=== PATIENT | female | born 1950 | race Caucasian/White ===

== ENCOUNTER → 2016-11-28 | Outpatient (CLI) | payer OTHER, BC ==
[~2016-11-28] VITALS: Ht 157.5 cm; Wt 48.1 kg
[~2016-11-28] MED LIST: ASA81BEC; CITRACAL + BON1 EACH PO; DEXADRINE PO; DULCOLAX STOOL100 MG PO; EFFEXOR XR150 MG PO; FIBER500 MG PO; FISH OIL 1,001000 M2 PO; LIDOCAINE-PRILO30 GM; LINZESS145 MCG PO; LISINOPRIL5 MG PO; METHADONE HCL5 MG PO; MOVANTIK12.5 MG PO; NODOLOR CAPSUL1 EACH PO; NORCO 5-325 TA1 EACH PO; OXYCODONE-ACET1 EAC2 PO; OXYCODONE-ACET1 EACH PO; OXYCONTIN10 M1 PO; PERCOCET PO; SENOKOT-S1 TA1 PO; TEGRETOL XR100 MG PO; TEGRETOL XR200 MG PO; TRAMADOL 50 MG50 MG; VALIUM5 MG PO; VALTREX 500 MG500 M1 PO; ZOCOR20 MG PO; ZOFRAN ODT4 MG DISSOLVE
[2016-11-28 10:50] VITALS: BP 124/82
== END | disposition home or self-care (01) ==
LOC: PAIN 06:50
DX: F52.22 Female sexual arousal disorder (principal); G89.29 Other chronic pain; M53.3 Sacrococcygeal disorders, not elsewhere classified; F11.20 Opioid dependence, uncomplicated; N81.89 Other female genital prolapse; R51 Headache; Z98.890 Other specified postprocedural states; Z87.891 Personal history of nicotine dependence

== ENCOUNTER → 2017-07-10 | Outpatient (CLI) | payer OTHER, BC ==
[~2017-07-10] VITALS: Ht 157.5 cm; Wt 46.7 kg
[~2017-07-10] MED LIST changes: +COLACE100 MG PO; +FLECTOR PATCH1 EA TRANSDERM; +METAMUCIL1 EAC1 PO; +SYMPROIC0.2 MG PO
--- NOTE | ~2017-07-10 | HPC ---
[facility] [address] [place] [address] PAIN MANAGEMENT CONSULTATION Name: DEEPA GALEANO Room #: REG Eric MAnnabella.#: [id number] Admission: 07/10/17 Attend Phys: Dakota Tai MD Discharge: Date of : 48 Report #: [id number] THIS REPORT FOR: //name// CC: ELENITA KING DATE OF SERVICE: 07/10/2017 HISTORY OF PRESENT ILLNESS: The patient returns to pain clinic today in followup. She has recently seen Dr. Pelon King. He has discussed percutaneous spinal cord stimulator trial followed by implant. She has completed her psychological testing. He intends to place the leads at standard T9 through T10 area, but may pull them lower in hopes of capturing her coccygeal region. In the meantime, we have continued to provide her with medication. She is highly anxious. She uses 2.5 mg of diazepam as needed for anxiety, this very low dose is paired with opioid, oxycodone 10/325 which is taken also on an as needed basis. She is cautious about her use, oftentimes using only half a tablet. She has had no issues with this combination of medications, but we have discussed the concerns regarding benzodiazepine and opioid on many occasions and we discussed that once again today. MEDICATIONS: All of the medications were reviewed and reconciled. She continues on other centrally-acting medications for depression and anxiety. Complete list includes venlafaxine 150 mg once daily, lisinopril 5 mg daily, simvastatin 20 mg daily, 81 mg aspirin, calcium carbonate, fish oil, Senokot-S, lidocaine/prilocaine cream, Valtrex, Nodolor capsule for migraine headache, Dexedrine daily and the opioid and Valium as described above. PHYSICAL EXAMINATION: Her affect is at baseline for most of the visits I have seen her in the clinic. She is pensive, apprehensive and anxious. She suffers from chronic depression. She moves easily from a sitting to standing position, ambulates without antalgic features. She has tenderness across the sacral region. Pain does not radiate. IMPRESSION: 1. 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 2. Anxiety, depression. 3. Management of high risk under terms of written opioid agreement. Guidelines for use of medication were reviewed. Importance of safely maintaining her current doses of medication were reviewed. [address] [address] PAIN MANAGEMENT CONSULTATION Name: DEEPA GALEANO Room #: REG MARITZA Bert#: [id number] Admission: 07/10/17 Attend Phys: Dakota Tai MD Discharge: Date of : 48 Report #: [id number] PLAN: To decrease medication after successful spinal cord stimulation trial and placement were discussed. If the trial and long-term management of a permanently implanted device are unsuccessful, we may ask for Dr. King's help in managing her medications long-term. <ELECTRONICALLY SIGNED> By: Dakota Tai MD 08/21/17 1408 [id number] Dakota Tai MD /nt
[2017-07-10 11:25] VITALS: BP 137/95
== END ==
LOC: PAIN 07:37
DX: G89.29 Other chronic pain (principal); M53.3 Sacrococcygeal disorders, not elsewhere classified; F41.9 Anxiety disorder, unspecified; F32.9 Major depressive disorder, single episode, unspecified; F11.90 Opioid use, unspecified, uncomplicated

== ENCOUNTER → 2017-11-02 | Outpatient (CLI) | payer OTHER, BC ==
[~2017-11-02] VITALS: Ht 157.5 cm; Wt 47.1 kg
[~2017-11-02] MED LIST changes: -COLACE100 MG PO; -METAMUCIL1 EAC1 PO; -SYMPROIC0.2 MG PO
--- NOTE | ~2017-11-02 | HPC ---
[facility] [place] [address] PAIN MANAGEMENT CONSULTATION Name: DEEPA GALEANO Room #: REG [facility] M..#: [id number] Admission: 11/02/17 Attend Phys: Dakota Tai MD Discharge: Date of : 48 Report #: [id number] THIS REPORT FOR: //name// CC: ELENITA LUEVANO Physician staff Dakota King MD DATE OF SERVICE: 11/02/2017 Followup visit for chronic sacral pain, status post aggressive decompressive surgery for Tarlov cyst. The patient returns to Pain Clinic today for followup. She has completed placement of a spinal cord stimulator by Dr. Pelon King. The device placed in August was a Nevro high frequency type. Her trial provided maybe 50% pain relief. I have asked her to give me her impression so far of the device and she says "disappointing." In further questioning, it appears that it does provide some modest relief, but she was hopeful that she would get more. She is very grateful for the medication that I provide her. She uses oxycodone 10/325 sparingly throughout the day. She is allowed to take 2 tablets. On some days, she takes less. Others, she may take up to a third tablet. It nearly always provides some measure of pain relief with minimal side effects. Constipation has been addressed. She has no cognitive side effects. It does not worsen her depression. provides her with some pain relief and may actually improve her mood. She remains highly anxious and she has been chronically on days of pain. The combination of an opioid and benzodiazepine having proven safe. We have reviewed all other medications listed on the electronic medical record. She scores her pain as a 6. Pain is worse with sitting and lying down. Pain is almost exclusively across the sacrum and tailbone without leg pain. PHYSICAL EXAMINATION: Her affect is pleasant. I have seen her more depressed. Although, her affect is little flat today, she seems more resigned and is managing her pain effectively. Her blood pressure 113/78, heart rate 72, respirations 18. BMI 19.0, typical for her. Localized tenderness over the sacrum is noted. IMPRESSION: 1. Chronic sacral pain. 2. Anxiety and depression. [address] [address] PAIN MANAGEMENT CONSULTATION Name: DEEPA GALEANO Room #: REG MARITZA Mcnair.#: [id number] Admission: 11/02/17 Attend Phys: Dakota Tai MD Discharge: Date of : 48 Report #: [id number] 3. Chronic intractable pain, being managed with spinal cord stimulation and medication under terms of written opioid agreement. I spent 25 minutes with her today. I reviewed the CDC guidelines in detail. Her MME is 30. Plan is for her to continue with medications, safeguarding it carefully under terms of our agreement. I plan to see her back in 3 months. By: [id number] MD korina Williamson
[2017-11-02 10:49] VITALS: BP 113/78
== END ==
LOC: PAIN 06:58
DX: G89.29 Other chronic pain (principal); M53.3 Sacrococcygeal disorders, not elsewhere classified; F41.9 Anxiety disorder, unspecified; F32.9 Major depressive disorder, single episode, unspecified

== ENCOUNTER → 2018-03-19 | Outpatient (CLI) | payer OTHER, BC ==
[~2018-03-19] VITALS: Ht 157.5 cm; Wt 48.3 kg
[~2018-03-19] MED LIST changes: +COLACE100 MG PO; +METAMUCIL1 EAC1 PO; +SYMPROIC0.2 MG PO
--- NOTE | ~2018-03-19 | HPC ---
[facility] [address] [place] [address] PAIN MANAGEMENT CONSULTATION Name: DEEPA GALEANO Room #: REG [facility] MKaren.#: [id number] Admission: 03/19/18 Attend Phys: Rosalia Puga Discharge: Date of : 48 Report #: [id number] THIS REPORT FOR: //name// CC: Rosalia LUEVANO Physician staff DATE OF SERVICE: 03/19/2018 CHIEF COMPLAINT: Followup visit for chronic sacral pain status post decompression surgery of a Tarlov Tarlov cyst. HISTORY OF PRESENT ILLNESS: The patient returns to the pain clinic today for followup for medication management. The patient recently had a spinal cord stimulator placed earlier this year. She tells me that she uses it 05/12, but it is not as helpful as she would have liked. Therefore, the patient does continue taking her oxycodone 10/325, 0 tablets to two tablets max a day for her chronic tailbone and sacral pain. Today, she is rating her pain score as 7 before she took her medicine and then 2 currently with her medicine. She tells me she took 1-1/2 oxycodone this morning. Her pain is worse when she is sitting or lying down or in the morning. Medications and her spinal cord stimulator do help her pain. She also tells me that she has been having significant constipation problems. She has tried Metamucil, MiraLax, Colace, Senokot, prunes. None of the medications have been helpful. She does take prunes and finds that somewhat beneficial, but it is hard to regulate that. Sometimes she ends up with diarrhea if she takes too many prunes in a day. ALLERGIES: TO METHADONE. LIST OF CURRENT MEDICATIONS: Colace, Metamucil, oxycodone 10/325 up to twice a day, Valium sparingly, Dexedrine, Valtrex, lidocaine/prilocaine cream, fish oil, Citracal, aspirin 81 mg, Zocor 20 mg daily, lisinopril 5 mg daily and Effexor 150 mg daily. PQRS: 1. Denies osteoarthritis or rheumatoid arthritis. 2. Height 5 feet 2 inches, weight 106, BMI is 19.5. 3. Vital signs: Blood pressure 131/95, pulse is 85, respirations 14, oxygen sat is 97. 4. Pain score was 7 prior to medications and 2 with her medications. 5. Fall risk: Denies dizziness. Does not need help walking or standing, has not fallen in the last 3 months. 6. Denies blood thinners. 7. History of hypertension. 8. Opioid therapy greater than 6 weeks, opioid signed contract on the chart. 9. Risk assessment tool is low. [address] [address] PAIN MANAGEMENT CONSULTATION Name: DEEPA GALEANO Room #: REG MARITZA Noel#: [id number] Admission: 03/19/18 Attend Phys: Rosalia Puga Discharge: Date of : 48 Report #: [id number] 10. Her functional assessment 68/70. 11. Denies recreational drug use, is a former smoker and does not drink alcohol. [facility] drug monitoring system was checked. The patient looks to be feeling only her opioids from Dr. Dakota Tai since signing her contract earlier this year. The patient fills are appropriate, does though use several different [facility] pharmacies and I encouraged her to use only one pharmacy if she is able. The patient tells me she safeguards her medications. PHYSICAL EXAMINATION: GENERAL: This is a pleasant, slightly apprehensive, anxious 67-year-old female. She moves easily from standing to sitting position, ambulates without antalgic features. She has tenderness across her sacral region. It does not radiate into her legs. HEENT: Normocephalic, atraumatic. Extraocular eye muscles are intact. Mucous membranes are moist. DIAGNOSTIC IMPRESSION: 1. Chronic sacral pain. 2. Anxiety and depression. 3. Management of high risk medications. 4. Opioid-induced constipation We reviewed the fact that opiate medications are being used to provide analgesia adequate to support activities of daily living, not attempting to achieve a specific pain score on the 0-10 Visual Analog Scale. The current opiate medications are providing sufficient analgesia to allow the patient to participate in activities of daily living. The patient is not exhibiting any aberrant behavior suggestive of drug diversion. The patient is not having any adverse reactions to medications. The patient is not suffering from daytime somnolence or mental acuity changes. The patient is managing opiate-induced constipation with appropriate veuk-odj-xqwuwqz agents and dietary considerations. The patient was counseled on concern for caution with operating a motor vehicle while using opiate medications. A physical exam was performed and the patient's functional status was evaluated. All patients with back pain were advised against the bed rest greater than 4 days and were advised to return to normal activities. Pain score assessment was noted and the treatment plan was reviewed with the patient. All current medications, both prescribed and OTC were reviewed and reconciled on the electronic medical record. Tobacco screening was accomplished and smoking cessation was advised when indicated. BMI was noted and diet/exercise modification was recommended for all patients following outside normal parameters. [address] [address] PAIN MANAGEMENT CONSULTATION Name: DEEPA GALEANO Room #: REG MARITZA Noel#: [id number] Admission: 03/19/18 Attend Phys: Rosalia Puga Discharge: Date of : 48 Report #: [id number] I reviewed with the patient today their responsibilities to safeguard prescription medications, reviewed their responsibility to utilize medications only as prescribed by the physician. They are to seek and receive pain medications only from 1 physician group ( [facility]). They are to use 1 pharmacy and keep the clinic informed if they change pharmacies. Their responsibilities include making followup visits in a timely fashion and to avoid abrupt discontinuation of medication usage. Their responsibilities further include bringing their medications (bottles from the pharmacy with residual pills) to the visit for possible confirmation of pill counts and the patient understands it is their responsibility to submit to random drug screens to ensure both that the medications prescribed are present, and that no other controlled substances are present. All prescriptions provided today were generated electronically. PLAN: 1. The patient presents today for refill of her opioid medications. The patient thinks they are very helpful in controlling her pain. The patient takes 0-2 oxycodone 10/325 on a daily basis. We will renew medications for 3 months. Prescriptions given for oxycodone 10/325, #60 for today, 4-week and 8-week. 2. The patient's opioid-induced constipation, was discussed and the patient says that she has tried Metamucil, Colace, Senokot, MiraLax, and prunes, currently using 3 different methods to reduce her constipation. After much discussion, we will try some Symproic 0.2 mg 1 tablet a day. The patient may take it on a daily basis, but if not needing her opioids, she may take it every other day if need be. Samples were given as well as a prescription. This may need a prior authorization, but the patient does have significant opioid-induced constipation with many medications tried and failed in the past. 3. The patient also discussed that she uses her spinal cord stimulator 24 hours 7 days a week, not as much pain relief that she had hoped, but is still using it. 4. The patient also thought her blood pressure was slightly elevated, today it was 131/95. The patient tells me she did take her antihypertensive earlier this morning. Prior visits her blood pressure was slightly lower, more in the normal range. I encouraged her to take it on a daily basis at the same time every day and if it continues to be elevated, then to notify her primary care doctor. 5. The patient is agreeable with this plan of care. The patient was seen today in collaboration with Dr. Dakota Tai. <ELECTRONICALLY SIGNED> By: Rosalia Puga 03/20/18 0707 [id number] Rosalia Puga /julio
[2018-03-19 10:43] VITALS: BP 131/95
== END ==
LOC: PAIN 06:55
DX: M53.3 Sacrococcygeal disorders, not elsewhere classified (principal); G89.29 Other chronic pain; F41.9 Anxiety disorder, unspecified; F32.9 Major depressive disorder, single episode, unspecified; K59.09 Other constipation; Z79.899 Other long term (current) drug therapy

== ENCOUNTER → 2018-07-02 | Outpatient (CLI) | payer OTHER, BC ==
[~2018-07-02] VITALS: Ht 157.5 cm; Wt 48.0 kg
[~2018-07-02] MED LIST changes: +XANAX 0.5 MG0.5 MG PO
[2018-07-02 10:33] VITALS: BP 134/85
--- NOTE | 2018-07-02 10:35 | NUR ---
Pain Clinic Assessment: 1. History of Osteoarthritis: History of Rheumatoid Arthritis: 2. Height: 5 ft. 2 in. 157.5 cm. Weight: 105.8 lb. oz. 47.990 kg. Patient's BMI: 19.3 3. Vital Signs: BP: 134/85 Pulse: 111 Resp: 16 Temp: 02 Sat: 97 ECG Mon: 4. Pain Intensity: 5 5. Fall Risk: Dizziness: N Needs help standing or walking: N Fallen in the last 3 months: N Fall risk comments: 6. Patient on Blood Thinner: None 7. History of Hypertension: Y 8. Opioid Therapy greater than 6 weeks: Y Opiate Contract Signed: 12/30/15 9. Risk Assessment Tool Provided: 1/LOW 10. Functional Assessment Tool: 68/70 11. Recreational Drug Use: Never Drug Type: Tobacco Use: Former Smoker Tobacco Type: Amount or Packs/day: How Many Years: Alcohol Use: No Frequency: Quant:
--- NOTE | 2018-07-03 14:48 | HPC ---
[facility] [address] [place] [address] PAIN MANAGEMENT CONSULTATION Name: DEEPA GALEANO Room #: REG [facility] MKaren.#: [id number] Admission: 07/02/18 ������������������ Attend Phys: Rosalia Puga Discharge: ������������������ Date of : 48 Report #: [id number] THIS REPORT FOR: //name// CC: Rosalia LUEVANO Physician staff DATE OF SERVICE: 07/02/2018 CHIEF COMPLAINT: Chronic sacral pain status post decompression surgery of a small cyst. HISTORY OF PRESENT ILLNESS: The patient returns to the pain clinic today telling me that she is doing terrible. She tells me that she has been worse since March when she had Nevro adjusted her spinal cord stimulator. They have adjusted it several times since then and each time she has been getting worse. Her pain is increasing. She tells me that her oxycodone is making her nauseous and having hot flashes. She tells me something has to be done. The patient is tearful at times complaining of tailbone and sacral pain and tells me that it is a constant, aching, sharp, stabbing pain, though she does rate her pain score at 5/10 today. She is requiring her oxycodone about 3 full tablets a day where she states she used to take 1-1/2 tablet a day. She is using ice packs to her sacral area 2 hours at a time twice daily. The patient appears very depressed today telling me nothing is helping and she cannot go on living like this. She is here today requesting changes in her medication or help and adjusting her medications to see what can be done to help her pain. ALLERGIES: METHADONE. LIST OF MEDICATIONS: Alprazolam 0.5 mg daily, oxycodone 10/325 up to 3 times a day, Colace 100 mg at bedtime, Metamucil daily, Valium half to one tablet b.i.d., Dexedrine 1 tablet daily, Nodolor capsules for headache as needed, Valtrex 500 mg daily, lidocaine-prilocaine cream as needed, fish oil daily, Citracal plus bone density tablets daily, 81 mg aspirin daily, Zocor 20 mg at bedtime and lisinopril 5 mg at bedtime. PQRS: 1. She denies any osteoarthritis or rheumatoid arthritis. 2. Height is 5 feet 2 inches, weight is 105 and BMI is 19.3. 3. Vital signs: Blood pressure is 134/85, pulse is 114, respirations 16 and oxygen sat is 97%. 4. Pain score is 5/10. 5. Denies dizziness. Does not help walking or standing. Has not fallen in the last 3 months. 6. The patient is not on blood thinner. She does take medicines for hypertension. [facility] [address] [place] [address] PAIN MANAGEMENT CONSULTATION Name: DEEPA GALEANO Room #: REG CLEric Noel#: [id number] Admission: 07/02/18 ������������������ Attend Phys: Rosalia Puga Discharge: ������������������ Date of : 48 Report #: [id number] 7. Opioid therapy for greater than 6 weeks; therefore, an opioid signed contract is on the chart. 8. Risk assessment tool is low. Functional assessment is 68/70. 9. She denies recreational drug use. She is a former smoker. She does not drink alcohol. We did check the prescription monitoring system. The patient is filling narcotics appropriately from Dr. Dakota Tai. We will check a drug screen on the next visit on this patient. PHYSICAL EXAMINATION: GENERAL: The patient's physical exam today: The patient is very apprehensive, anxious. She suffers from depression. She appears her stated age, though she is not as well cared for today as she has in the past visits. She easily moves from sitting to standing position without difficulty. She does move her legs up against her chest sitting in the chair to relieve pressure on her coccyx area. She complains of tenderness in her coccyx region today that does not radiate into her legs, but she tells me that it is sharp in nature and stabbing. The patient states the pain is worse with sitting and lying down. IMPRESSION: 1. Chronic sacral pain. 2. Anxiety. 3. Severe depression, chronic ongoing. 4. Management of high risk medications. 5. History of persistent genital arousal disorder as she describes a persistent genital arousal disorder. 6. Spinal cord stimulator placed. We reviewed the fact that opiate medications are being used to provide analgesia adequate to support activities of daily living, not attempting to achieve a specific pain score on the 0-10 Visual Analog Scale. The current opiate medications are providing sufficient analgesia to allow the patient to participate in activities of daily living. The patient is not exhibiting any aberrant behavior suggestive of drug diversion. The patient is not having any adverse reactions to medications. The patient is not suffering from daytime somnolence or mental acuity changes. The patient is managing opiate-induced constipation with appropriate owft-wre-xlupqqt agents and dietary considerations. The patient was counseled on concern for caution with operating a motor vehicle while using opiate medications. A physical exam was performed and the patient's functional status was evaluated. All patients with back pain were advised against the bed rest greater than 4 days and were advised to return to normal activities. Pain score assessment was noted and the treatment plan was reviewed with the patient. All current medications, both prescribed and OTC were reviewed and reconciled on the [facility] [address] [place] [address] PAIN MANAGEMENT CONSULTATION Name: DEEPA GALEANO Room #: REG HAYLEEEric M.R.#: [id number] Admission: 07/02/18 ������������������ Attend Phys: Rosalia MAT Puga Discharge: ������������������ Date of : 48 Report #: [id number] electronic medical record. Tobacco screening was accomplished and smoking cessation was advised when indicated. BMI was noted and diet/exercise modification was recommended for all patients following outside normal parameters. I reviewed with the patient today their responsibilities to safeguard prescription medications, reviewed their responsibility to utilize medications only as prescribed by the physician. They are to seek and receive pain medications only from 1 physician group ( [facility]). They are to use 1 pharmacy and keep the clinic informed if they change pharmacies. Their responsibilities include making followup visits in a timely fashion and to avoid abrupt discontinuation of medication usage. Their responsibilities further include bringing their medications (bottles from the pharmacy with residual pills) to the visit for possible confirmation of pill counts and the patient understands it is their responsibility to submit to random drug screens to ensure both that the medications prescribed are present, and that no other controlled substances are present. All prescriptions provided today were generated electronically. PLAN: 1. We discussed treatment options with the patient today. I spoke with the patient for a great length of time prior to bringing Dr. Dakota Tai into the patient. The patient has been seen by Fabrizio to adjust her spinal cord stimulator again, this is the fourth time that she has met with them in the past 2 months, stating that it continues to get worse. Her pain has been worse for the last several months. 2. The patient tells us that she has been having significant treatment for her depression. She tells me that she had tried ketamine infusions that were to last 6 weeks. 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 She tells me she has tried about 30 different meds for anxiety and depression such as Abilify, nortriptyline and Effexor and all of them increased her PGAD per the patient. 3. We discussed other treatment options that we think that may be effective for her nerve pain in her sacral area. The patient tells us that she had tried gabapentin in the past, which continued to give her PGAD symptoms. Dr. Tai discussed Lyrica, Trileptal, Tegretol to name a few. He explained that there are several anti-seizure medications that can be used to help treat nerve pain such that the patient has. We just have to trial each one to see which would be the best, some work on different channels, some work in the body, sodium or calcium channel blockers, we explained to the patient. At this point, we would like to do a trial of Lyrica. The patient is very apprehensive about trying a new medication for fear of having her PGAD come back. We explained and [address] [address] PAIN MANAGEMENT CONSULTATION Name: DEEPA GALEANO Room #: DUKE Noel#: [id number] Admission: 07/02/18 ������������������ Attend Phys: Rosalia Puga Discharge: ������������������ Date of : 49 Report #: [id number] encouraged the patient to at least give it try. We will not know unless she tries the patient reluctantly agreed to try Lyrica 50 mg to take 1 at bedtime for 3-5 days and then increase one in the morning every 3-5 days and the goal dose would be 50 mg 3 times a day. The patient was given samples of this medication to trial over the next month to see if that helps with her sacral pain as well as adjustment in her spinal cord stimulator. 4. The patient was offered by us to call [facility] for a psychiatric evaluation. She is telling me that she cannot go on like this her life, she was not worth living if she cannot function. I explained to her that maybe she would need to go to an inpatient psych facility. We did offer her [facility] again Dr. Tai has many connections at [place] to see the patient and she at this time refused. She tells me she will not be harming herself. She just needs to have something to help with this pain. I did reemphasize that Lyrica hopefully will help with this along with her pain medications. 5. Script given for her oxycodone , #90. The patient has been taking 3 of these a day. We hope that this along with the Lyrica will aid some of her relief. 6. Refill of her diazepam, the patient has been using this medication prn from Dr. Tai and requests a refill of that. We encouraged her to use it very sparingly since she does have alprazolam that she takes also for some anxiety and not to take them on the same day. She uses the Valium as a muscle relaxant more than for anxiety. 7. The patient did want to discuss possible injection therapies like a radiofrequency ablation or a new medication, tanezumab and that medication is not on the market yet. Dr. Tai was unsure that radiofrequency would help. He tells us he is not sure which nerves he would try to burn since she has had surgery in the past for her cyst. He will address this again at another appointment. 8. An appointment made for 1 month to review her medications to see if they are working as well as her spinal cord adjustment. The patient encouraged to call if she is having symptoms from the Lyrica. The patient is seen in total for about an hour through all of these counselings for her depression and anxiety and pain issues. The patient is seen today in collaboration and with Dr. Tai in the room present today on this visit. ��������������������������������������������� <ELECTRONICALLY SIGNED> ���������������������������������������� By: Rosalia uPga ��������������������������������������������� 07/03/18 1448 [id number] [id number] Rosalia Puga /nt
== END ==
LOC: PAIN 07:04
DX: G89.29 Other chronic pain (principal); F41.9 Anxiety disorder, unspecified; F32.9 Major depressive disorder, single episode, unspecified; M53.3 Sacrococcygeal disorders, not elsewhere classified; T85.192D Other mechanical complication of implanted electronic neurostimulator of spinal cord electrode (lead), subsequent encounter; Z86.69 Personal history of other diseases of the nervous system and sense organs; Z79.899 Other long term (current) drug therapy

== ENCOUNTER → 2018-07-23 | Outpatient (CLI) | payer OTHER, BC ==
[~2018-07-23] VITALS: Ht 157.5 cm; Wt 47.5 kg
[~2018-07-23] MED LIST changes: +LIORESAL 10 MG10 MG PO
[2018-07-23 10:07] VITALS: BP 142/87
--- NOTE | 2018-07-23 11:18 | NUR ---
Pain Clinic Assessment: 1. History of Osteoarthritis: Not Applicable History of Rheumatoid Arthritis: Not Applicable 2. Height: 5 ft. 2 in. 157.5 cm. Weight: 104.8 lb. oz. 47.537 kg. Patient's BMI: 19.2 3. Vital Signs: BP: 142/87 Pulse: 90 Resp: 14 Temp: 02 Sat: 100 ECG Mon: 4. Pain Intensity: 3 5. Fall Risk: Dizziness: N Needs help standing or walking: N Fallen in the last 3 months: N Fall risk comments: 6. Patient on Blood Thinner: None 7. History of Hypertension: Y 8. Opioid Therapy greater than 6 weeks: Y Opiate Contract Signed: 12/30/15 9. Risk Assessment Tool Provided: 1/LOW 10. Functional Assessment Tool: 11. Recreational Drug Use: Never Drug Type: Tobacco Use: Former Smoker Tobacco Type: Amount or Packs/day: How Many Years: Alcohol Use: No Frequency: Quant:
--- NOTE | 2018-07-24 08:56 | HPC ---
[facility] [address] [address] PAIN MANAGEMENT CONSULTATION Name: DEEPA GALEANO Room #: REG [facility] MAnnabella.#: [id number] Admission: 07/23/18 ������������������ Attend Phys: Rosalia Puga Discharge: ������������������ Date of : 49 Report #: [id number] THIS REPORT FOR: //name// CC: Rosalia LUEVANO Physician staff DATE OF SERVICE: 07/23/2018 CHIEF COMPLAINT: Chronic sacral pain, status post decompression surgery. HISTORY OF PRESENT ILLNESS: The patient returns to the pain clinic today after a trial of her Lyrica for 1 month and follow up for refill of her medications. The patient tells me that she was unable to tolerate the Lyrica. She states that she had PGAD symptoms after taking one dose and stopped it. She did tell me that she called the [facility] and talked to them about her ongoing pain and they told her that amitriptyline, Cymbalta, Neurontin and Lyrica, all cause increase in PGAD symptoms while taking them. The patient tells me that she also did call [facility] and they do not treat PGAD, so she is here today for a refill of her pain medicine and to have her spinal cord stimulator adjusted. She does tell me that she has been taking an average of two a day, occasionally 3 of her pain medicine. She has taken herself off Valium and did not take the Lyrica more than one day. She has been trying an vxgl-xbb-lcmqenr Aleve direct therapy that is found very helpful. She places that on her lower back when her symptoms are bad as well as using ice to her lower back and sacral area as well. ALLERGIES: METHADONE. CURRENT LIST OF MEDICATIONS: Xanax 0.5 mg daily, oxycodone 10/325 three times a day as needed, Colace as needed, Metamucil daily, Dexedrine 1 mg daily, Nodolor capsules daily, Valtrex 500 mg daily, fish oil daily, calcium plus bone density tablet daily, 81 mg aspirin daily, simvastatin 20 mg daily and lisinopril 5 mg daily. PQRS: The patient denies any osteoarthritis or rheumatoid arthritis. Height is 5 feet 2 inches, weight is 104 and BMI is 19. Vital signs 142/87, pulse is 90, oxygen sat is 100. Pain score is 3/10. Fall risk. Denies dizziness, does not need help walking or standing and has not fallen in the last 3 months. The patient denies blood thinners and does take medicine for hypertension. She is on opioid therapy greater than 6 weeks; therefore, an opiate signed contract is on the chart. Her risk assessment tool is low. Her functional assessment is 47/70. Recreational drug use, she denies. She is a former smoker and does not drink alcohol. We did check the prescription monitoring system. The patient is filling appropriately from her medications and is on time today for her [address] [address] PAIN MANAGEMENT CONSULTATION Name: DEEPA GALEANO Room #: DUKE Noel#: [id number] Admission: 07/23/18 ������������������ Attend Phys: Rosalia Puga Discharge: ������������������ Date of : 48 Report #: [id number] medicines. We will check a drug screen on the patient at her next visit. PHYSICAL EXAMINATION: GENERAL: This is a very anxious female who also suffers from depression. She appears her stated age. Her affect is slightly improved from last visit. Happy at times throughout her visit today. HEENT: Normocephalic and atraumatic. Extraocular eye muscles are intact. Mucous membranes are moist. Hearing is adequate. NECK: No JVD or adenopathy. MUSCULOSKELETAL: The patient easily moves from sitting to standing position without difficulty. She walks with a normal gait. She complains of tenderness over her coccyx region today that does not radiate down her legs. She said she will have occasional sharp pain from her coccyx into her genital area. ASSESSMENT: 1. Chronic sacral pain. 2. Anxiety. 3. Severe depression. 4. Management of high risk medications. 5. History of persistent genital arousal disorder that she describes as PGAD. 6. Spinal cord stimulator placement We reviewed the fact that opiate medications are being used to provide analgesia adequate to support activities of daily living, not attempting to achieve a specific pain score on the 0-10 Visual Analog Scale. The current opiate medications are providing sufficient analgesia to allow the patient to participate in activities of daily living. The patient is not exhibiting any aberrant behavior suggestive of drug diversion. The patient is not having any adverse reactions to medications. The patient is not suffering from daytime somnolence or mental acuity changes. The patient is managing opiate-induced constipation with appropriate dsnc-qyj-pexlfzx agents and dietary considerations. The patient was counseled on concern for caution with operating a motor vehicle while using opiate medications. A physical exam was performed and the patient's functional status was evaluated. All patients with back pain were advised against the bed rest greater than 4 days and were advised to return to normal activities. Pain score assessment was noted and the treatment plan was reviewed with the patient. All current medications, both prescribed and OTC were reviewed and reconciled on the electronic medical record. Tobacco screening was accomplished and smoking cessation was advised when indicated. BMI was noted and diet/exercise modification was recommended for all patients following outside normal parameters. I reviewed with the patient today their responsibilities to safeguard prescription medications, reviewed their responsibility to utilize medications [facility] [address] [place] [address] PAIN MANAGEMENT CONSULTATION Name: DEEPA GALEANO Room #: REG CL M..#: [id number] Admission: 07/23/18 ������������������ Attend Phys: Rosalia Puga Discharge: ������������������ Date of : 49 Report #: [id number] only as prescribed by the physician. They are to seek and receive pain medications only from 1 physician group ( [facility]). They are to use 1 pharmacy and keep the clinic informed if they change pharmacies. Their responsibilities include making followup visits in a timely fashion and to avoid abrupt discontinuation of medication usage. Their responsibilities further include bringing their medications (bottles from the pharmacy with residual pills) to the visit for possible confirmation of pill counts and the patient understands it is their responsibility to submit to random drug screens to ensure both that the medications prescribed are present, and that no other controlled substances are present. All prescriptions provided today were generated electronically. PLAN: 1. We discussed treatment options with the patient today. The patient was given a trial of Lyrica at her last visit a month ago. She was unable to take this medicine more than one dose because she tells me that she experienced PGAD symptoms in the middle of the night, so therefore she stopped the medicine. 2. The patient tells me that she had talked to [facility]. They do not treat any PGAD patients though she did not call the psychiatric part of [place] in which Dr. Tai had encouraged her to go see. 3. The patient tells me she did talk to [facility] and has given me a list of medicines that they state are not helpful for PGAD, which is amitriptyline, Cymbalta, nortriptyline and Lyrica. The patient has also given me a significant list that we will place on the chart of medications that she has tried in the past. [facility] did talk to her about baclofen and she says that she has taken baclofen in the past from her [employer]. I am wondering if that may be helpful with some of her muscle tightness that she experiences in her lower back and her vaginal area. I discussed this with Dr. Tai and we agreed that we will give her a trial of baclofen 10 mg b.i.d. The patient to take one tablet at bedtime, if she needs to increase it then she may to 2 tablets a day as needed, #60 was given with two additional refills. I have instructed the patient that if this is not helpful, Dr. Tai also suggested tizanidine 2 mg tablets. He believes this may be less sedating. We will trial the baclofen first since this is what the [facility] had recommended and this is what the patient has been requesting to see if this is helpful. 3. Fabrizio carrillo came and adjusted her spinal cord stimulator again today. This is the fourth time the patient has been adjusted since April. These adjustments today were based on some clinical guidelines from their head office. The patient is agreeable to do a trial of this. 4. The patient has been taking Aleve direct therapy stimulation to her lower back. She is finding that has been helpful. I encouraged the patient to continue to use this if she finds it is beneficial though to not use her spinal cord stimulator while she is using this. The patient also finds that ice has been helpful at times and we discussed using that for 15 minutes at a time and off for the remainder of the hour. If the patient finds that heat is helpful, she may try that. Again I explained to her 15 minutes on and off for the [facility] [address] [place] [address] PAIN MANAGEMENT CONSULTATION Name: DEEPA GALEANO Room #: DUKE Mcnair.#: [id number] Admission: 07/23/18 ������������������ Attend Phys: Rosalia Puga Discharge: ������������������ Date of : 48 Report #: [id number] remainder of the hour. 5. Scripts given for her Percocet , to take one tablet 2-3 times a day, quantity of 75 were given for today, 4-week and 8-week release. 6. The patient was seen with Dr. Tai in collaboration with him today. The patient will return in 3 months for an appointment. ��������������������������������������������� <ELECTRONICALLY SIGNED> ���������������������������������������� By: Rosalia Puga ��������������������������������������������� 07/24/18 0856 [id number] Rosalia Puga /nt
== END ==
LOC: PAIN 06:49
DX: M53.3 Sacrococcygeal disorders, not elsewhere classified (principal); F41.9 Anxiety disorder, unspecified; F32.9 Major depressive disorder, single episode, unspecified; F52.22 Female sexual arousal disorder; Z79.899 Other long term (current) drug therapy

== ENCOUNTER → 2018-10-29 | Outpatient (CLI) | payer OTHER, BC ==
[~2018-10-29] VITALS: Ht 157.5 cm; Wt 48.5 kg
[2018-10-29 11:30] VITALS: BP 117/79
--- NOTE | 2018-10-29 11:40 | NUR ---
Pain Clinic Assessment: 1. History of Osteoarthritis: Not Applicable History of Rheumatoid Arthritis: Not Applicable 2. Height: 5 ft. 2 in. 157.5 cm. Weight: 107.0 lb. oz. 48.535 kg. Patient's BMI: 19.6 3. Vital Signs: BP: 117/79 Pulse: 75 Resp: 14 Temp: 02 Sat: 99 ECG Mon: 4. Pain Intensity: 7 AM, NOW A 3 5. Fall Risk: Dizziness: N Needs help standing or walking: N Fallen in the last 3 months: N Fall risk comments: 6. Patient on Blood Thinner: None 7. History of Hypertension: Y 8. Opioid Therapy greater than 6 weeks: Y Opiate Contract Signed: 12/30/15 9. Risk Assessment Tool Provided: 1/WILLARD 10. Functional Assessment Tool: 11. Recreational Drug Use: Never Drug Type: Tobacco Use: Former Smoker Tobacco Type: Amount or Packs/day: How Many Years: Alcohol Use: No Frequency: Quant:
--- NOTE | 2018-10-30 13:22 | HPC ---
[facility] [address] [place] [address] PAIN MANAGEMENT CONSULTATION Name: DEEPA GALEANO Room #: REG [facility] MAnnabella.#: [id number] Admission: 10/29/18 ������������������ Attend Phys: Rosalia Puga Discharge: ������������������ Date of : 48 Report #: [id number] THIS REPORT FOR: //name// CC: Rosalia LUEVANO Physician staff DATE OF SERVICE: 10/29/2018 CHIEF COMPLAINT: Chronic sacral pain status post decompression surgery. HISTORY OF PRESENT ILLNESS: This is a 67-year-old female who returns to the pain clinic today for a refill of her medications. She tells me that her pain score is a 3/10 today with her medications on board. She tells me she was a 7/10 this morning in her tailbone sacral area. It is a constant aching deep, dull pain, worse with sitting and lying down. The medications and cold peas are very helpful. She has been using an wlvk-dhi-vqlxsco TENS unit when her pain is worse in the afternoons. She tells me that that helps reduce the amount of narcotics that she needs to take. The patient was here in July and did talk about radiofrequency lesioning with Dr. Tai. He encouraged her to seek elsewhere another physician to possibly perform that on her. The patient has seen Dr. Smyth who did a CAT scan on her and has performed one medial branch block trying to locate a nerve that causes some of her pain. She tells me that did not help at all. She is going back next week for a second injection to see if they can localize the nerve that is causing her pain. ALLERGIES: METHADONE. CURRENT MEDICATIONS: Baclofen 10 mg b.i.d., oxycodone 10/325 p.r.n., Colace, Metamucil, Dexedrine, Valtrex 500 mg b.i.d., fish oil, calcium, simvastatin 20 mg daily, lisinopril 10 mg daily. PQRS: The patient denies any osteoarthritis or rheumatoid arthritis, states she does have spinal stenosis. Height is 5 feet 2 inches, weight is 107, BMI is 19. Vital signs, 117/79, pulse is 75, respirations 14, oxygen sat is 99. Pain score is 3/10 currently, 7/10 this morning. Fall risk, denies dizziness. Does not need help walking or standing, has not fallen in the last 3 months. The patient is not on any blood thinners, but does take medicine for hypertension. Opioid therapy is greater than 6 weeks; therefore, an opioid signed contract is on the chart. Her risk assessment tool is low. Functional assessment is 47/70. Recreational drug use, she denies. She is not a smoker and does not drink alcohol. According to the prescription monitoring system, the patient is filling [address] [address] PAIN MANAGEMENT CONSULTATION Name: DEEPA GALEANO Room #: REG [facility] Tabby.#: [id number] Admission: 10/29/18 ������������������ Attend Phys: Rosalia Puga Discharge: ������������������ Date of : 48 Report #: [id number] appropriately. She is due for her medications to be filled. PHYSICAL EXAMINATION: GENERAL: This is a 67-year-old female who is alert and orientated. She appears her stated age. Her affect is appropriate. She is a good historian. HEENT: Normocephalic, atraumatic. Extraocular eye muscles are intact. Mucous membranes are moist. Hearing is adequate. NECK: Without JVD or adenopathy. MUSCULOSKELETAL: The patient moves from sitting to standing without difficulty. She walks with a normal gait. She has tenderness across her coccyx region with no radicular symptoms. ASSESSMENT: 1. Chronic sacral pain. 2. Anxiety. 3. Depression. 4. Management of high risk medications. 5. 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 6. Spinal cord stimulator placement, not in use. 7. We reviewed the fact that opiate medications are being used to provide analgesia adequate to support activities of daily living, not attempting to achieve a specific pain score on the 0-10 Visual Analog Scale. The current opiate medications are providing sufficient analgesia to allow the patient to participate in activities of daily living. The patient is not exhibiting any aberrant behavior suggestive of drug diversion. The patient is not having any adverse reactions to medications. The patient is not suffering from daytime somnolence or mental acuity changes. The patient is managing opiate-induced constipation with appropriate eyum-azt-kotfoox agents and dietary considerations. The patient was counseled on concern for caution with operating a motor vehicle while using opiate medications. A physical exam was performed and the patient's functional status was evaluated. All patients with back pain were advised against the bed rest greater than 4 days and were advised to return to normal activities. Pain score assessment was noted and the treatment plan was reviewed with the patient. All current medications, both prescribed and OTC were reviewed and reconciled on the electronic medical record. Tobacco screening was accomplished and smoking cessation was advised when indicated. BMI was noted and diet/exercise modification was recommended for all patients following outside normal parameters. I reviewed with the patient today their responsibilities to safeguard prescription medications, reviewed their responsibility to utilize medications only as prescribed by the physician. They are to seek and receive pain medications only from 1 physician group ( [facility]). They are to use 1 pharmacy and keep the clinic informed if they change pharmacies. Their [facility] [address] [place] [address] PAIN MANAGEMENT CONSULTATION Name: DEEPA GALEANO Room #: REG [facility] Noel#: [id number] Admission: 10/29/18 ������������������ Attend Phys: Rosalia MAT Puga Discharge: ������������������ Date of : 48 Report #: [id number] responsibilities include making followup visits in a timely fashion and to avoid abrupt discontinuation of medication usage. Their responsibilities further include bringing their medications (bottles from the pharmacy with residual pills) to the visit for possible confirmation of pill counts and the patient understands it is their responsibility to submit to random drug screens to ensure both that the medications prescribed are present, and that no other controlled substances are present. All prescriptions provided today were generated electronically. PLAN: 1. We discussed treatment options with the patient today. The patient tells me that overall she is doing quite well. Her medications are helpful. Scripts given today for oxycodone 10/325, #75 for today, 4-week and 8-week release and baclofen 10 mg b.i.d., #60. The patient uses these very p.r.n. The patient is well below the CDC guidelines with her narcotic use; therefore, she is seen every 3 months. 2. I encouraged the patient to continue having her medial branch blocks second injection done even though the first one did not cause any significant pain relief. I explained to her that Dr. Smyth will try to locate a specific nerve that is causing her pain that is why Dr. Tai referred her to someone else thinking that he would not be able to help her with that procedure. The patient tells me she will go through with the procedure next week, not take her pain pills before and hopefully will have some relief from the diagnostic part of that procedure to hopefully have some long-term benefit. 3. The patient is seen today in collaboration with Dr. Dakota Tai. The patient will follow up with us in 3 months. ��������������������������������������������� <ELECTRONICALLY SIGNED> ���������������������������������������� By: Rosalia Puga ��������������������������������������������� 10/30/18 1322 [id number] 2150 Rosalia Puga /nt
== END ==
LOC: PAIN 06:54
DX: M53.3 Sacrococcygeal disorders, not elsewhere classified (principal); G89.29 Other chronic pain; F41.9 Anxiety disorder, unspecified; F32.9 Major depressive disorder, single episode, unspecified; Z79.899 Other long term (current) drug therapy; Z79.891 Long term (current) use of opiate analgesic

== ENCOUNTER → 2019-04-08 | Outpatient (CLI) | payer OTHER, BC ==
[~2019-04-08] VITALS: Ht 157.5 cm; Wt 45.8 kg
[~2019-04-08] MED LIST changes: +RELISTOR150 MG PO; +TIZANIDINE HCL 22 M1 PO
[2019-04-08 11:17] VITALS: BP 121/83
--- NOTE | 2019-04-08 11:23 | NUR ---
Pain Clinic Assessment: 1. History of Osteoarthritis: DENIES History of Rheumatoid Arthritis: DENIES 2. Height: 5 ft. 2 in. 157.5 cm. Weight: 101.0 lb. oz. 45.813 kg. Patient's BMI: 18.5 3. Vital Signs: BP: 121/83 Pulse: 101 Resp: 15 Temp: 02 Sat: 98 ECG Mon: 4. Pain Intensity: 7 5. Fall Risk: Dizziness: N Needs help standing or walking: N Fallen in the last 3 months: N Fall risk comments: 6. Patient on Blood Thinner: None 7. History of Hypertension: Y 8. Opioid Therapy greater than 6 weeks: Y Opiate Contract Signed: 12/30/15 9. Risk Assessment Tool Provided: 1/LOW 10. Functional Assessment Tool: 11. Recreational Drug Use: Never Drug Type: Tobacco Use: Former Smoker Tobacco Type: Amount or Packs/day: How Many Years: Alcohol Use: No Frequency: Quant:
--- NOTE | 2019-04-09 09:04 | HPC ---
[facility] [address] [place] [address] PAIN MANAGEMENT CONSULTATION Name: DEEPA GALEANO Room #: REG [facility] M..#: [id number] Admission: 04/08/19 Attend Phys: Rosalia Puga Discharge: Date of : 48 Report #: [id number] THIS REPORT FOR: //name// CC: Rosalia Montiel Physician staff Dakota Tai MD DATE OF SERVICE: 04/08/2019 CHIEF COMPLAINT: Chronic sacral pain status post decompression surgery. HISTORY OF PRESENT ILLNESS: This is a 68-year-old female who returns to the pain clinic today for refill of her medications that she uses to help treat her chronic ongoing sacral pain. She was last seen in our office in November. Since that time, she has been diagnosed with lung cancer, did have her right lower lobe removed and has been doing quite well from that surgery. She reports that they caught it early with no need for chemo or radiation. The patient does not complain of pain in surgical area. The patient reports a pain score of 7/10 today in her tailbone sacral area. She characterizes it as a constant deep aching pain, worse with sitting and lying down and worse in the morning. She feels her medications are beneficial as well as cold packs that she uses multiple times a day. She did seek treatment from Dr. Smyth, who performed a radiofrequency ablation on her with no results in decrease of pain from that procedure. She is here for refills of her medication that she does use sparingly for pain as well as refills of medication that she uses for muscle spasms. She also continues to have issues with constipation, is wondering if there is medication that we could offer her some relief with. She has been having ongoing nausea and has decreased her weight by 6 pounds since we last saw her in October. ALLERGIES: KETAMINE AND METHADONE. CURRENT LIST OF MEDICATIONS: Baclofen 10 mg b.i.d., oxycodone 10/325 p.r.n., Colace, Metamucil, Dexedrine, Valtrex 250 mg daily, lidocaine cream, fish oil, Citracal, baclofen bedtime, simvastatin 20 mg daily and lisinopril 10 mg daily. PQRS: 1. She denies any rheumatoid arthritis. 2. Height is 5 feet 2 inches, weight is 101. BMI is 18. 3. Vital signs 121/83, pulse is 101, respirations 16, oxygen sat is 98. 4. Pain score 7/10. 5. Denies dizziness, does not need help walking or standing, has not fallen in the last [address] [address] PAIN MANAGEMENT CONSULTATION Name: DEEPA GALEANO Room #: REG [facility] Tabby.#: [id number] Admission: 04/08/19 Attend Phys: Rosalia Puga Discharge: Date of : 48 Report #: [id number] 6. The patient is not on any blood thinners, does have a history of hypertension. 7. Opioid therapy is greater than 6 weeks; therefore, an opioid signed contract is on the chart. Risk assessment tool is low. Functional assessment is 47/70. 8. Recreational drug use, she denies. She is a former smoker. Does not drink alcohol. According to the prescription monitoring system, the patient is due to fill her medications. She has filled them very sparingly, but only from Dr. Dakota Tai. There is a drug screen on the chart that is appropriate for her medications. She reports that she safeguards these meds. PHYSICAL EXAMINATION: GENERAL: This is a 68-year-old, alert and oriented female who appears her stated age. She is a good historian. Her affect is appropriate. HEENT: Normocephalic, atraumatic. Extraocular eye muscles are intact. Mucous membranes are moist. LUNGS: Clear to auscultation. There are well-healed scars on her right thoracic area. MUSCULOSKELETAL: The patient moves from sitting to standing without difficulty. She has a normal gait. She has tenderness around her sacral coccyx region with no radicular symptoms. ABDOMEN: She complains of generalized nausea with no emesis and abdominal bloating with reports of constipation. IMPRESSION: 1. Chronic sacral pain. 2. Anxiety. 3. Depression. 4. Spinal cord stimulator placement, not in use. 5. History of persistent genital arousal disorder. She describes as PGAD. 6. Opioid-induced constipation. We reviewed the fact that opiate medications are being used to provide analgesia adequate to support activities of daily living, not attempting to achieve a specific pain score on the 0-10 Visual Analog Scale. The current opiate medications are providing sufficient analgesia to allow the patient to participate in activities of daily living. The patient is not exhibiting any aberrant behavior suggestive of drug diversion. The patient is not having any adverse reactions to medications. The patient is not suffering from daytime somnolence or mental acuity changes. The patient is managing opiate-induced constipation with appropriate vqlv-esh-rrvurau agents and dietary considerations. The patient was counseled on concern for caution with operating a motor vehicle while using opiate medications. A physical exam was performed and the patient's functional status was evaluated. [address] [address] PAIN MANAGEMENT CONSULTATION Name: DEEPA GALEANO Room #: REG [facility] Annabella#: [id number] Admission: 04/08/19 Attend Phys: Rosalia Puga Discharge: Date of : 48 Report #: [id number] All patients with back pain were advised against the bed rest greater than 4 days and were advised to return to normal activities. Pain score assessment was noted and the treatment plan was reviewed with the patient. All current medications, both prescribed and OTC were reviewed and reconciled on the electronic medical record. Tobacco screening was accomplished and smoking cessation was advised when indicated. BMI was noted and diet/exercise modification was recommended for all patients following outside normal parameters. I reviewed with the patient today their responsibilities to safeguard prescription medications, reviewed their responsibility to utilize medications only as prescribed by the physician. They are to seek and receive pain medications only from 1 physician group ( [facility]). They are to use 1 pharmacy and keep the clinic informed if they change pharmacies. Their responsibilities include making followup visits in a timely fashion and to avoid abrupt discontinuation of medication usage. Their responsibilities further include bringing their medications (bottles from the pharmacy with residual pills) to the visit for possible confirmation of pill counts and the patient understands it is their responsibility to submit to random drug screens to ensure both that the medications prescribed are present, and that no other controlled substances are present. All prescriptions provided today were generated electronically. PLAN: 1. We discussed treatment options with the patient today. The patient reports that yearly CAT scans since she was a previous smoker saved her from malignant cancer. She had a small nodule that they were able to remove which is not requiring any treatment. She has quit smoking several years ago, but states this CAT scan was very beneficial in early detection. 2. The patient has been complaining of ongoing nausea and constipation for quite some time. She has tried Metamucil, MiraLax, Colace, and prunes with continued constipation. We will try Relistor tablets once a day. If this is beneficial in controlling some of her constipation, we will call in a monthly script for her. This was E-scribed for her. 3. The patient feels that the baclofen has not been controlling some of her muscle spasms. She takes this prior to bedtime. She is wondering if there is an alternative. We discussed tizanidine at a low dose 2 mg 1 tablet at bedtime to see if this is beneficial. Scripts sent for this 30 tablets with 2 refills. The patient instructed not to take baclofen and this medication. 4. We will continue her oxycodone , #75, the patient takes these very sparingly 1 daily, occasionally 3 on bad painful days. These were sent electronically by Dr. Dakota Tai today. 5. The patient is seen in collaboration with Dr. Tai. The patient will [address] [address] PAIN MANAGEMENT CONSULTATION Name: DEEPA GALEANO Room #: REG [facility] Noel#: [id number] Admission: 04/08/19 Attend Phys: Rosalia Puga Discharge: Date of : 48 Report #: [id number] follow up in 3 months for her medication since she is on a low morphine mEq of 45 morphine mEq. <ELECTRONICALLY SIGNED> By: Rosalia Puga 04/09/19 0904 [id number] Rosalia Puga /nt
== END ==
LOC: PAIN 06:44
DX: M53.3 Sacrococcygeal disorders, not elsewhere classified (principal); F41.9 Anxiety disorder, unspecified; F32.9 Major depressive disorder, single episode, unspecified

== ENCOUNTER → 2019-07-04 | Outpatient (CLI) | payer OTHER, BC ==
[~2019-07-04] VITALS: Ht 157.5 cm; Wt 46.3 kg
[2019-07-04 11:18] VITALS: BP 128/88
--- NOTE | 2019-07-04 11:29 | NUR ---
Pain Clinic Assessment: 1. History of Osteoarthritis: BACK History of Rheumatoid Arthritis: DENIES 2. Height: 5 ft. 2 in. 157.5 cm. Weight: 102.0 lb. oz. 46.267 kg. Patient's BMI: 18.7 3. Vital Signs: BP: 128/88 Pulse: 70 Resp: 14 Temp: 02 Sat: 100 ECG Mon: 4. Pain Intensity: 3 5. Fall Risk: Dizziness: N Needs help standing or walking: N Fallen in the last 3 months: N Fall risk comments: 6. Patient on Blood Thinner: None 7. History of Hypertension: Y 8. Opioid Therapy greater than 6 weeks: Y Opiate Contract Signed: 12/30/15 9. Risk Assessment Tool Provided: 1/LOW 10. Functional Assessment Tool: 11. Recreational Drug Use: Never Drug Type: Tobacco Use: Former Smoker Tobacco Type: Amount or Packs/day: How Many Years: Alcohol Use: No Frequency: Quant:
--- NOTE | 2019-07-08 12:43 | HPC ---
[facility] [address] [place] [address] PAIN MANAGEMENT CONSULTATION Name: DEEPA GALEANO Room #: REG [facility] M..#: [id number] Admission: 07/04/19 Attend Phys: Rosalia Puga Discharge: Date of : 48 Report #: [id number] THIS REPORT FOR: cc: RAMON LUEVANO MD Physician not on staff Rosalia Puga ~ THIS REPORT FOR: //name// CC: Rosalia LUEVANO Physician staff DATE OF SERVICE: 07/04/2019 CHIEF COMPLAINT: Chronic sacral pain, status post decompression surgery. HISTORY OF PRESENT ILLNESS: This is a 68-year-old female who returns to the pain clinic today for refill of her medications that she uses to help treat her tailbone and sacrum area pain. She describes it as a deep aching, throbbing pain. It does walk wax and wane. Today, she is reporting the pain score of 3/10. She states that sitting or lying down or in the morning her pain is worse, though the medication as well as using her frozen pea bags are very beneficial in controlling most of those pain. The patient does report she has seen Dr. Curt Milan since we have seen her last and had two epidural steroid injections, which were not beneficial in controlling her pain, then she had a trial for an intrathecal pump. Dr. Milan is reporting to her that she is a candidate to have an intrathecal pump placed and that the patient is currently trying to decide if this is the best form of treatment for her to consider. Today, she is here requesting refills of medications as well as to discuss treatment options. ALLERGIES: METHADONE AND KETAMINE. CURRENT LIST OF MEDICATIONS: Oxycodone 10/325 p.r.n., tizanidine p.r.n., Colace, Metamucil, Dexedrine, Valtrex, fish oil, Citracal, Zocor and Zestril. PQRS: 1. She denies any rheumatoid arthritis. 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 2. Height is 5 feet 2 inches, weight is 102, BMI is 18.7. 3. Vital Signs: 128/88, pulse is 70, respirations 14, oxygen sat is 100. 4. Pain score is 3/10. 5. Denies dizziness, does not need help walking or standing, has not fallen in the last 3 months. 6. The patient is not on any blood thinners, [place] [address] PAIN MANAGEMENT CONSULTATION Name: DEEPA GALEANO [facility] [id number] Admission: 07/04/19 Attend Phys: Rosalia Puga Discharge: Date of : 48 Report #: [id number] hypertension. Her opioid therapy is greater than 6 weeks; therefore, an opioid signed contract on the chart. Risk assessment tool is low. Functional assessment is 47/70. 7. Recreational drug use, she denies. She is a former smoker and does not drink alcohol. According to the prescription monitoring system, the patient filled her last opioid prescription in March. Her current morphine mEq if she took all of her medications on a daily basis would be 45, but I believe this to be significantly less due to the fact that it does not look like the patient has filled her 4-week and 8-week medications that were prescribed for her in March. PHYSICAL EXAMINATION: GENERAL: This is a 68-year-old, alert and orientated female, who appears her stated age. She is a good historian. HEENT: Normocephalic, atraumatic. Extraocular eye muscles are intact. Mucous membranes are moist. LUNGS: Clear. She has a well-healed scar on her right thoracic area from recent lung cancer surgery. MUSCULOSKELETAL: She moves from sitting to standing without any difficulty. She has a normal gait. She has tenderness in her coccyx region with no radicular symptoms present. IMPRESSION: 1. Chronic sacral pain. 2. Anxiety. 3. Depression. 4. Spinal cord stimulator placement. 5. Lung cancer with recent surgery. 6. 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 We reviewed the fact that opiate medications are being used to provide analgesia adequate to support activities of daily living, not attempting to achieve a specific pain score on the 0-10 Visual Analog Scale. The current opiate medications are providing sufficient analgesia to allow the patient to participate in activities of daily living. The patient is not exhibiting any aberrant behavior suggestive of drug diversion. The patient is not having any adverse reactions to medications. The patient is not suffering from daytime somnolence or mental acuity changes. The patient is managing opiate-induced constipation with appropriate spfr-xni-famfftb agents and dietary considerations. The patient was counseled on concern for caution with operating a motor vehicle while using opiate medications. A physical exam was performed and the patient's functional status was evaluated. All patients with back pain were advised against the bed rest greater than [address] [address] PAIN MANAGEMENT CONSULTATION Name: DEEPA GALEANO Room #: REG [facility] Noel#: [id number] Admission: 07/04/19 Attend Phys: Rosalia Puga Discharge: Date of : 48 Report #: [id number] days and were advised to return to normal activities. Pain score assessment was noted and the treatment plan was reviewed with the patient. All current medications, both prescribed and OTC were reviewed and reconciled on the electronic medical record. Tobacco screening was accomplished and smoking cessation was advised when indicated. BMI was noted and diet/exercise modification was recommended for all patients following outside normal parameters. I reviewed with the patient today their responsibilities to safeguard prescription medications, reviewed their responsibility to utilize medications only as prescribed by the physician. They are to seek and receive pain medications only from 1 physician group ( [facility]). They are to use 1 pharmacy and keep the clinic informed if they change pharmacies. Their responsibilities include making followup visits in a timely fashion and to avoid abrupt discontinuation of medication usage. Their responsibilities further include bringing their medications (bottles from the pharmacy with residual pills) to the visit for possible confirmation of pill counts and the patient understands it is their responsibility to submit to random drug screens to ensure both that the medications prescribed are present, and that no other controlled substances are present. All prescriptions provided today were generated electronically. PLAN: 1. We discussed treatment options with the patient today. Much time was spent discussing the benefits of intrathecal pump. She is unsure if this is the proper treatment for her. I explained that she will need to discuss that further with Dr. Milan. I do not have the results of how the trial findings were if her pain was decreased during that time, then he would consider her a good candidate and he must have thought she did well since he reported to her that she was a candidate. I did explain now to the patient that we would no longer prescribe opioid medications if she did have intrathecal pump placed. It was discovered that the patient has not filled. According to the prescription monitoring system, any opioids from March on, if this is the case, I told the patient that therefore I believe that she would not need intrathecal pump, it looks like she is using her opioid medications very sparingly. The patient is going to check with [facility] to see if she still has the 4-week and 8-week prescription on file there. Again, it was not reported to the prescription monitoring system that she did fill these. 2. We will have Dr. Dakota Tai refill her medications today and send them electronically to her pharmacy for 3 months and we will avoid any old prescriptions that may be there. 3. The patient is seen in collaboration with Dr. Dakota [place] [address] PAIN MANAGEMENT CONSULTATION Name: DEEPA GALEANO Room #: REG [facility] Noel#: [id number] Admission: 07/04/19 Attend Phys: Rosalia Puga Discharge: Date of : 48 Report #: [id number] will return in 3 months if needed for medication refills or on an as needed basis. <ELECTRONICALLY SIGNED> By: Rosalia Puga 07/08/19 1243 [id number] [id number] Rosalia Puga /julio
== END ==
LOC: PAIN 06:49
DX: M53.3 Sacrococcygeal disorders, not elsewhere classified (principal); G89.29 Other chronic pain; F41.9 Anxiety disorder, unspecified; F32.9 Major depressive disorder, single episode, unspecified; Z96.82 Presence of neurostimulator; Z85.118 Personal history of other malignant neoplasm of bronchus and lung; Z79.899 Other long term (current) drug therapy; Z79.891 Long term (current) use of opiate analgesic

== ENCOUNTER → 2020-03-09 | Outpatient (CLI) | payer OTHER, BC ==
[~2020-03-09] VITALS: Ht 157.5 cm; Wt 48.2 kg
[~2020-03-09] MED LIST changes: +EMGALITY120 MG/1 M SUBQ; +PERCOCET 10-321 EAC1 PO
[2020-03-09 11:00] VITALS: BP 109/88
--- NOTE | 2020-03-09 11:17 | NUR ---
Pain Clinic Assessment: 1. History of Osteoarthritis: BACK History of Rheumatoid Arthritis: DENIES 2. Height: 5 ft. 2 in. 157.5 cm. Weight: 106.2 lb. oz. 48.172 kg. Patient's BMI: 19.4 3. Vital Signs: BP: 109/88 Pulse: 107 Resp: 14 Temp: 02 Sat: 100 ECG Mon: 4. Pain Intensity: 2 5. Fall Risk: Dizziness: Y Needs help standing or walking: N Fallen in the last 3 months: Y Fall risk comments: 6. Patient on Blood Thinner: None 7. History of Hypertension: Y 8. Opioid Therapy greater than 6 weeks: Y Opiate Contract Signed: 12/30/15 9. Risk Assessment Tool Provided: 1/LOW 10. Functional Assessment Tool: 11. Recreational Drug Use: Never Drug Type: Tobacco Use: Former Smoker Tobacco Type: Amount or Packs/day: How Many Years: Alcohol Use: No Frequency: Quant:
--- NOTE | 2020-03-10 13:45 | HPC ---
[facility] [address] [place] [address] PAIN MANAGEMENT CONSULTATION Name: DEEPA GALEANO Room #: REG [facility] M..#: [id number] Admission: 03/09/20 Attend Phys: Rosalia Puga Discharge: Date of : 48 Report #: [id number] CC: Rosalia Montiel Physician staff Dakota Tai MD DATE OF SERVICE: 03/09/2020 CHIEF COMPLAINT: Chronic sacral pain post decompression surgery. HISTORY OF PRESENT ILLNESS: This is a 69-year-old female who returns to the pain clinic today to discuss her opioid medications. We have not seen her since early in June. She reports she has been doing quite well, rating her pain at 2-3 taking her oxycodone sparingly and has been able to get by for several months with her existing medication fills; therefore, she had not been back to see us for her chronic ongoing sacral pain. She does feel that those medications are beneficial, stating it is a deep aching, throbbing pain, worse with prolonged sitting and lying down. She denies any constipation or daytime somnolence as a result of those medications. The patient does report that she fell in early February and does have a small fracture in her femur. She is in a leg brace today on her left leg. She denies any pain in her leg. She believes she had a syncopal episode and has been monitoring her blood pressure since then, though she is unsure if her blood pressure cuff is reliable. She does take lisinopril 20 mg on a daily basis. The patient has been following up with her primary and does have an appointment this week. ALLERGIES: METHADONE AND KETAMINE. CURRENT LIST OF MEDICATIONS: Emgality injection monthly, oxycodone 10/325 p.r.n., Colace, Excedrin, acyclovir, calcium, Zocor, Zestril. PQRS: 1. Has osteoarthritic changes in her back. Denies any rheumatoid arthritis. 2. Height is 5 feet 2 inches, weight is 106 kg, BMI is 19. 3. Vital signs; blood pressure 109/88, pulse is 107, respirations 14, oxygen sat is 100. 4. Pain score is 2/10. 5. Complains of dizziness, does not need assistance with walking, has fallen in the last 3 months. 6. The patient is not on any blood thinners, but does take medicine for hypertension. 7. Her opioid therapy is greater than 6 weeks; therefore, an opioid signed contract is on the chart. Risk assessment is low. Functional assessment is 47/70. 8. Recreational drug use, she denies. She is a former smoker and does not drink alcohol. According to the prescription monitoring system, the patient has been filling appropriately, though several months in between refills. According to the prescription monitoring she is due to fill her medications today. Her morphine milliequivalent is considerably under 50 MME according to the CDC guidelines. PHYSICAL EXAMINATION: GENERAL: This is alert and orientated 69-year-old female who appears her stated age. She is a good historian, quite thin in appearance. HEENT: Normocephalic, atraumatic. Extraocular eye muscles are intact. She is wearing a mask. MUSCULOSKELETAL: She moves from sitting to standing with slight difficulty due to a brace on her left leg, from her thigh to her calf due to recent fracture. She has tenderness in her coccyx region with no radicular symptoms. IMPRESSION: 1. Chronic sacral pain. 2. Recent left femur fracture. 3. Anxiety and depression. 4. Spinal cord stimulator placement. 5. Lung cancer with well-healed scar. 6. 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 7. Opioid medications under written agreement. We reviewed the fact that opiate medications are being used to provide analgesia adequate to support activities of daily living, not attempting to achieve a specific pain score on the 0-10 Visual Analog Scale. The current opiate medications are providing sufficient analgesia to allow the patient to participate in activities of daily living. The patient is not exhibiting any aberrant behavior suggestive of drug diversion. The patient is not having any adverse reactions to medications. The patient is not suffering from daytime somnolence or mental acuity changes. The patient is managing opiate-induced constipation with appropriate ndsg-vjc-faeqstr agents and dietary considerations. The patient was counseled on concern for caution with operating a motor vehicle while using opiate medications. PLAN: 1. We discussed treatment options with the patient today. We discussed her blood pressure and encouraging her to obtain a new blood pressure cuff or to calibrate it at home to see if it is accurate. She reports readings in the 150s at home. The last few times she is here, it has been 128/88 or 109/88. Patient is also encouraged to discuss with her primary doctor about decreasing her antihypertensive slightly to see if this may be the cause of her syncopal episode. 3. The patient reports she had been seeing urogynecologist for trigger point injections for her PGAD, but they are no longer as effective. She had seen another doctor for nerve blocks which are no longer effective. The patient is depressed that, that has been a lifelong problem with treatment only lasting temporarily. Encouraged the patient to try biofeedback to see if she is able to distract herself when the symptoms occur. 4. We will refill her oxycodone 10/325 for today, 4-week and 8-week, so this typically last her longer than a month. The patient is seen in about 6-month intervals. 5. We did help assist with her brace today to fit more properly on her left lower extremity. I encouraged her to call the automotive sales representative of the brace to see if there is some further adjustments that they can make for a better fit on her leg, lower left extremity. 6. The patient is seen in collaboration with Dr. Dakota Tai who did send her medicines electronically. She will follow up as needed. <ELECTRONICALLY SIGNED> By: Rosalia Puga 03/10/20 1345 [id number] [id number] Rosalia Puga /julio
== END ==
LOC: PAIN 06:48
PROVIDERS: ATTEND Clinical Nurse Specialist Adult Health
DX: M53.3 Sacrococcygeal disorders, not elsewhere classified (principal); G89.29 Other chronic pain; F41.8 Other specified anxiety disorders; M96.1 Postlaminectomy syndrome, not elsewhere classified; F11.20 Opioid dependence, uncomplicated; Z85.118 Personal history of other malignant neoplasm of bronchus and lung; Z87.42 Personal history of other diseases of the female genital tract; Z87.81 Personal history of (healed) traumatic fracture; Z88.8 Allergy status to other drugs, medicaments and biological substances; Z79.899 Other long term (current) drug therapy

== ENCOUNTER → 2020-08-20 | Outpatient (CLI) | payer OTHER, BC ==
[~2020-08-20] VITALS: Ht 157.5 cm; Wt 47.4 kg
[2020-08-20 10:43] VITALS: BP 128/85
--- NOTE | 2020-08-20 10:58 | NUR ---
Pain Clinic Assessment: 1. History of Osteoarthritis: BACK History of Rheumatoid Arthritis: DENIES 2. Height: 5 ft. 2 in. 157.5 cm. Weight: 104.4 lb. oz. 47.355 kg. Patient's BMI: 19.1 3. Vital Signs: BP: 128/85 Pulse: 97 Resp: 14 Temp: 02 Sat: 98 ECG Mon: 4. Pain Intensity: 4 5. Fall Risk: Dizziness: N Needs help standing or walking: N Fallen in the last 3 months: N Fall risk comments: 6. Patient on Blood Thinner: None 7. History of Hypertension: Y 8. Opioid Therapy greater than 6 weeks: Y Opiate Contract Signed: 12/30/15 9. Risk Assessment Tool Provided: 1/LOW 10. Functional Assessment Tool: 11. Recreational Drug Use: Never Drug Type: Tobacco Use: Former Smoker Tobacco Type: Amount or Packs/day: How Many Years: Alcohol Use: No Frequency: Quant:
--- NOTE | 2020-08-21 11:54 | HPC ---
[facility] [place] [address] PAIN MANAGEMENT CONSULTATION Name: DEEPA GALEANO Room #: REG [facility] M..#: [id number] Admission: 08/20/20 Attend Phys: Rosalia Puga Discharge: Date of : 48 Report #: [id number] THIS REPORT FOR: cc: RAMON LUEVANO MD Physician not on staff Rosalia Puga ~ DATE OF SERVICE: 08/20/2020 CHIEF COMPLAINT: Chronic sacral pain, post-decompression surgery. HISTORY OF PRESENT ILLNESS: This is a 69-year-old female who returns to the pain clinic today for renewal of her opioid medications. We have not seen the patient since February. She states that she tries to take the lowest most effective dose of her oxycodone there, enabling her to come every 5-6 months. The patient reports most of her pain is located in her tailbone sacral area that is a deep aching sensation. Today, she rates that pain a 4/10. It is worse when she is sitting and lying down and upon awakening in the morning. She believes it is using her opioid medications as well as "bag of peas" is beneficial. Today, the patient would like refills of her opioid medications. The patient reports to me that she underwent a radiofrequency ablation on 08/12/[address] Shen at [facility]. She is disappointed that this has not been beneficial yet. She has undergone this procedure previously by Dr. Smyth several years ago with no results. The patient reports she is also getting injections from Dr. Shen for her PGAD and is unsure if that is beneficial. The patient is asking questions regarding trigger finger injections and also wondering if a medication of tanezumab is on the market yet. The patient also has questions regarding this psychologist for pain that she may seek out. ALLERGIES: METHADONE AND KETAMINE. CURRENT LIST OF MEDICATIONS: Oxycodone 10/325 p.r.n., Emgality, Colace, Dexedrine, Valtrex, Caltrate, simvastatin, lisinopril. PQRS: 1. She has a history of osteoarthritis in her back and hands. Denies any rheumatoid arthritis. 2. Height is 5 feet 2 inches, weight is 104, BMI is 19. 3. Vital signs 128/85, pulse is 97, respirations 14, oxygen sat is 98%. 4. Pain score is 4/10. 5. Denies dizziness, does not need help walking or standing, has not fallen in the last 3 months. 6. The patient is not on any blood thinners, but does take medicine for hypertension. 7. Opioid therapy is greater than 6 weeks. There is [place] [address] PAIN MANAGEMENT CONSULTATION Name: DEEPA GALEANO Room #: [facility] Noel#: [id number] Admission: 08/20/20 Attend Phys: Rosalia Puga Discharge: Date of : 48 Report #: [id number] on the chart. 8. Risk assessment is low. Functional assessment is 47/70. 9. Recreational drug use, she denies. She is a former smoker and does not drink alcohol. According to the prescription monitoring system, the patient is filling appropriately of her opioids. She does have dexamphetamine on her prescription monitoring system as well as a fill of Valium that the patient did not address. Her morphine mEq is 15 MMEs per day. PHYSICAL EXAMINATION: GENERAL: This is alert and orientated, very anxious, anorexic 69-year-old female, who reports her pain score is a 4/10 today. She is a good historian with numerous questions. HEENT: Normocephalic, atraumatic. Extraocular eye muscles are intact. She is wearing a mask. MUSCULOSKELETAL: She moves from sitting to standing without difficulty. She has tenderness in her coccyx region with no radicular symptoms noted. IMPRESSION: 1. Chronic sacral pain. 2. Anxiety. 3. Depression. 4. Spinal cord stimulator placement, not currently using. 5. Lung cancer, in remission. 6. History of persistent genital arousal disorder, PGAD. 7. Opioid medication under written opioid agreement. PLAN: 1. We discussed numerous options today with the patient. First, we discussed her opioid medications of oxycodone 10/325. The patient utilizes this very sparingly 1-1-1/2 tablets a day. I did remind the patient she is allowed up to 2-3 tablets a day if need be on most severe days, but encouraged her to take the lowest most effective dose. We will have Dr. Dakota Tai continue this medication for 75 pills sending those electronically for 3 total monthly fills. 2. We did discuss trigger finger. The patient reports having, though I saw no evidence today. I encouraged her to see an orthopedic physician upon discussing this with Dr. Dakota Tai. I did offer [facility] as an option. 3. We did discuss her radiofrequency ablation that she recently had less than a week ago. I explained that she may not notice for affects for 2-3 weeks since the patient is disappointed she continues to have pain. The patient has had these in the past that are not beneficial. Again, I encouraged the patient to have patience to see if the procedure is beneficial. 4. We briefly discussed intrathecal pain pump again. She had had a trial with Dr. Bucky Milan in 06/2019. At that time, she elected not to have the implant. She was unsure if it was beneficial. I again encouraged her to go [facility] [address] [place] [address] PAIN MANAGEMENT CONSULTATION Name: DEEPA GALEANO Room #: REG [facility] M.R.#: [id number] Admission: 08/20/20 Attend Phys: Rosalia Puga Discharge: Date of : 48 Report #: [id number] Milan.She feels that this may be an option for her. I am unsure if this would be a good option for the patient due to the fact that she takes less than 15 MMEs of morphine a day, very sparingly. 5. The patient asks for pain psychologist. I did offer her the [facility]. They have a program on biofeedback for pain control. I also offered her Dr. Tabby Batres and Liliam Valentin's phone numbers. 6. Finally, we did discuss a medication, tanezumab. This is a medication for arthritic issues. The patient has studied in the past. Unfortunately, this medication is not on the market as of to date, but it is approved by the FDA. This is a Pfizer product. I believe that they are busy with the COVPops vaccine production, so therefore, this medication has been put on hold. Time spent in consultation reviewing recent studies, clinical notes, physician reports and physical examination and correlation of findings, 25 minutes. Time spent in preparation for appointment reviewing prescription monitoring system, reviewing previous records and proposed treatment options and reviewing current medications, 5 minutes. Time spent preparing and sending electronic physicians with collaborating physician, Dr. Dakota Tai, documentation of visit and plan of treatment, 5 minutes. Total time spent 35 minutes. <ELECTRONICALLY SIGNED> By: Rosalia Puga 08/21/20 1154 1444 06 Rosalia Puga /nt
== END ==
LOC: PAIN 06:48
PROVIDERS: ATTEND Clinical Nurse Specialist Adult Health
DX: M53.3 Sacrococcygeal disorders, not elsewhere classified (principal); F41.8 Other specified anxiety disorders; M96.1 Postlaminectomy syndrome, not elsewhere classified; F11.20 Opioid dependence, uncomplicated; C34.10 Malignant neoplasm of upper lobe, unspecified bronchus or lung; Z87.448 Personal history of other diseases of urinary system; Z88.8 Allergy status to other drugs, medicaments and biological substances; Z79.899 Other long term (current) drug therapy

== ENCOUNTER → 2021-01-04 | Outpatient (CLI) | payer OTHER, BC ==
[~2021-01-04] VITALS: Ht 157.5 cm; Wt 45.8 kg
[2021-01-04 12:52] VITALS: BP 128/73
--- NOTE | 2021-01-04 13:00 | NUR ---
Pain Clinic Assessment: 1. History of Osteoarthritis: BACK History of Rheumatoid Arthritis: DENIES 2. Height: 5 ft. 2 in. 157.5 cm. Weight: 101.0 lb. oz. 45.813 kg. Patient's BMI: 18.5 3. Vital Signs: BP: 128/73 Pulse: 91 Resp: 16 Temp: 02 Sat: 100 ECG Mon: 4. Pain Intensity: 3 5. Fall Risk: Dizziness: N Needs help standing or walking: N Fallen in the last 3 months: N Fall risk comments: 6. Patient on Blood Thinner: None 7. History of Hypertension: Y 8. Opioid Therapy greater than 6 weeks: Y Opiate Contract Signed: 12/30/15 9. Risk Assessment Tool Provided: 1/LOW 10. Functional Assessment Tool: 58/70 11. Recreational Drug Use: Never Drug Type: Tobacco Use: Former Smoker Tobacco Type: Amount or Packs/day: How Many Years: Alcohol Use: No Frequency: Quant:
== END ==
LOC: PAIN 10:41
PROVIDERS: ATTEND Clinical Nurse Specialist Adult Health
DX: M53.3 Sacrococcygeal disorders, not elsewhere classified (principal); F41.9 Anxiety disorder, unspecified; F32.9 Major depressive disorder, single episode, unspecified; Z79.891 Long term (current) use of opiate analgesic; Z79.899 Other long term (current) drug therapy

== ENCOUNTER → 2021-05-10 | Outpatient (CLI) | payer OTHER, BC ==
[~2021-05-10] VITALS: Ht 157.5 cm; Wt 48.3 kg
[2021-05-10 11:04] VITALS: BP 119/83
--- NOTE | 2021-05-10 11:07 | NUR ---
Pain Clinic Assessment: 1. History of Osteoarthritis: BACK History of Rheumatoid Arthritis: DENIES 2. Height: 5 ft. 2 in. 157.5 cm. Weight: 106.4 lb. oz. 48.263 kg. Patient's BMI: 19.5 3. Vital Signs: BP: 119/83 Pulse: 86 Resp: 20 Temp: 02 Sat: 95 ECG Mon: 4. Pain Intensity: 4 5. Fall Risk: Dizziness: N Needs help standing or walking: N Fallen in the last 3 months: N Fall risk comments: 6. Patient on Blood Thinner: None 7. History of Hypertension: Y 8. Opioid Therapy greater than 6 weeks: Y Opiate Contract Signed: 12/30/15 9. Risk Assessment Tool Provided: 1/LOW 10. Functional Assessment Tool: 58/70 11. Recreational Drug Use: Never Drug Type: Tobacco Use: Former Smoker Tobacco Type: Amount or Packs/day: How Many Years: Alcohol Use: No Frequency: Quant:
== END ==
LOC: PAIN 08:53
PROVIDERS: ATTEND Anesthesiology Pain Medicine
DX: G89.29 Other chronic pain (principal); I10 Essential (primary) hypertension; M47.9 Spondylosis, unspecified; F41.9 Anxiety disorder, unspecified; F32.A Depression, unspecified; Z88.5 Allergy status to narcotic agent; Z88.4 Allergy status to anesthetic agent; Z87.891 Personal history of nicotine dependence; Z79.899 Other long term (current) drug therapy